=== PATIENT | female | born 1945 | race African-American/Black ===

== ENCOUNTER 2020-02-12 22:17 | Emergency (ER) | payer BC ==
[~2020-02-12] VITALS: Ht 157.5 cm; Wt 43.0 kg
[2020-02-13 00:50] VITALS: BP 145/80
== END 2020-02-13 00:51 | disposition home or self-care (01) ==
LOC: ER 22:17
DX: T50.7X1A Poisoning by analeptics and opioid receptor antagonists, accidental (unintentional), initial encounter (principal); C34.90 Malignant neoplasm of unspecified part of unspecified bronchus or lung; Y93.89 Activity, other specified; C78.00 Secondary malignant neoplasm of unspecified lung
CPT/HCPCS: 99283